=== PATIENT | female | born 1940 | race Caucasian/White ===

== ENCOUNTER 2024-11-17 19:54 | Observation (INO) | payer OTHER ==
[2024-11-17 22:02] LABS: BASO % 1.4 % (0-2.0); EOS % 2.6 % (0-4.5); HEMATOCRIT 21.9 % (32.4-45.2); HEMOGLOBIN 7.1 GM/dL (10.7-15.3); LYMPH % 31.2 % (8-40); MCH 28.8 pg (25.7-33.7); MCHC 32.4 g/dl (32.0-36.0); MEAN CELL VOLUME 88.8 fl (80-96); MEAN PLT VOLUME 7.4 fl (7.5-11.1); MONO % 7.4 % (3.8-10.2); NEUT % 57.4 % (42.8-82.8); PLATELET COUNT 235 10^3/uL (134-434); RBC 2.47 M/mm3 (3.60-5.2); RDW 14.6 % (11.6-15.6); WHITE BLOOD COUNT 5.6 K/mm3 (4.0-10.0)
[2024-11-17 22:08] LABS: INR 1.11 (0.83-1.09); PROTHROMBIN TIME (PATIENT) 12.2 SEC (9.7-13.0)
[2024-11-17 22:10] LABS: ACTIVATED PTT 28.8 SECONDS (25.2-36.5)
[2024-11-17 22:15] LABS: POTASSIUM 3.9 mmol/L (3.5-5.1)
[2024-11-17 22:17] LABS: CALCIUM 8.6 mg/dL (8.5-10.1)
[2024-11-17 22:18] LABS: ALBUMIN 3.3 g/dl (3.4-5.0); BLOOD UREA NITROGEN 29.8 mg/dL (7-18)
[2024-11-17 22:21] LABS: CREATININE 0.8 mg/dL (0.55-1.3)
[2024-11-17 22:23] LABS: BILIRUBIN,TOTAL 0.2 mg/dL (0.2-1); TOT PROT 6.6 g/dl (6.4-8.2)
[2024-11-17] MEDS ORDERED: ACETAMINOPHEN 325 MG TABLET (FP) ONE (22:56)
[2024-11-17] MEDS: ACETAMINOPHEN 325 MG TABLET (FP) PO ONE (23:06)
[2024-11-18] MEDS ORDERED: ACETAMINOPHEN 325 MG TABLET (FP) PO PRN (00:36)
[2024-11-18] MEDS ORDERED: QUEtiapine FUMARATE 25 MG TABLET ONE ×2 (01:11→02:05)
[2024-11-18] MEDS: QUEtiapine FUMARATE 25 MG TABLET PO SCH (01:17)
[2024-11-18] MEDS: amLODIPine BESYLATE 5 MG TABLET (FP) PO SCH ×2 (01:17→10:30)
[2024-11-18 02:02] LABS: EPI CELLS 6 /uL (0-25.1); HYALINE CASTS 0 /uL (0-3.1); URINE APPEARANCE CLEAR; URINE BACTERIA 17 /uL (0-1359); URINE BILIRUBIN NEGATIVE (NEGATIVE); URINE COLOR YELLOW; URINE GLUCOSE (UA) NEGATIVE (NEGATIVE); URINE KETONE NEGATIVE (NEGATIVE); URINE LEUK ESTERASE NEGATIVE (NEGATIVE); URINE NITRITE NEGATIVE (NEGATIVE); URINE PROTEIN NEGATIVE (NEGATIVE); URINE RBC 33 /uL (0-23.9); URINE UROBILINOGEN 0.2 mg/dL (0.2-1.0); URINE WBC 6 /uL (0-25.8)
[2024-11-18] MEDS: QUEtiapine FUMARATE 50 MG TABLET PO ONE (02:13)
[2024-11-18] MEDS: DIVALPROEX SODIUM 250 MG TABLET E.C. PO SCH (06:07)
[2024-11-18] MEDS: ALBUTEROL SO4 0.083% IH SOL 2.5 MG/3 ML VIAL.NEB. NEB SCH (07:20)
[2024-11-18 08:12] VITALS: RESP 16; BMI 28.3
[2024-11-18 10:01] VITALS: BP 125/57; PULSE 71; TEMP 97.5
[2024-11-18 10:09] LABS: HEMATOCRIT 24.9 % (32.4-45.2); HEMOGLOBIN 8.3 GM/dL (10.7-15.3); MCH 29.2 pg (25.7-33.7); MCHC 33.3 g/dl (32.0-36.0); MEAN CELL VOLUME 87.6 fl (80-96); MEAN PLT VOLUME 7.3 fl (7.5-11.1); PLATELET COUNT 199 10^3/uL (134-434); RBC 2.84 M/mm3 (3.60-5.2); RDW 14.7 % (11.6-15.6); WHITE BLOOD COUNT 4.5 K/mm3 (4.0-10.0)
[2024-11-18] MEDS: FLUTICASONE/UMECLIDIN/VILANTER(100-62.5-25 TRELEGY ELLIPTA) INAHLER IH SCH (10:27)
[2024-11-18] MEDS: PANTOPRAZOLE 40 MG TABLET PO SCH (10:27)
[2024-11-18] MEDS: HYDROCHLOROTHIAZIDE 25 MG TABLET (FP) PO SCH (10:27)
[2024-11-18] MEDS: ESCITALOPRAM OXALATE 10 MG TABLET PO SCH (10:28)
[2024-11-18] MEDS: LOSARTAN POTASSIUM 50 MG TABLET PO SCH (10:30)
[2024-11-18] MEDS: IRON SUCROSE INJECTION 200 MG in SODIUM CHLORIDE 100 ML IVPB ONE (10:33)
[2024-11-18] MEDS ORDERED: QUEtiapine FUMARATE 25 MG TABLET PO SCH (22:00)
== END 2024-11-18 17:26 | disposition home or self-care (01) ==
LOC: JER 19:54 → JERBED 22:47 → UNDOADMOB 22:47 → INTOOBSV 11-18 00:34 → OBSVTOIN 11-18 00:34 → JERBED 11-18 02:18 → J6S 11-18 05:24
PROVIDERS: ADMIT Student in an Organized Health Care Education/Training Program; ATTEND Internal Medicine
PROC: 30233N1 Transfusion of Nonautologous Red Blood Cells into Peripheral Vein, Percutaneous Approach (ICD-10-PCS; principal; 2024-11-18)
PROC: 3E033GC Introduction of Other Therapeutic Substance into Peripheral Vein, Percutaneous Approach (ICD-10-PCS; 2024-11-18)
PROC: 3E0F7SF Introduction of Other Gas into Respiratory Tract, Via Natural or Artificial Opening (ICD-10-PCS; 2024-11-18)
DX: D62 Acute posthemorrhagic anemia (principal); R04.0 Epistaxis; I10 Essential (primary) hypertension; E78.5 Hyperlipidemia, unspecified; I25.10 Atherosclerotic heart disease of native coronary artery without angina pectoris; F20.9 Schizophrenia, unspecified; F40.9 Phobic anxiety disorder, unspecified; F32.A Depression, unspecified; R26.2 Difficulty in walking, not elsewhere classified; Z99.89 Dependence on other enabling machines and devices; Z95.4 Presence of other heart-valve replacement; Z98.61 Coronary angioplasty status
CPT/HCPCS: 0241U-QW; 36415; 36430; 36511; 70450-TC; 71045-TC-FY; 80053; 80061; 81003; 82728; 83540; 83550; 83735; 84439; 84443; 84484; 85025; 85027; 85610; 85730; 86850; 86900; 86901; 86922; 87086; 87633; 93005; 93010; 94640; 96365; 97116-GP; 97162-GP; 99285-25; G0378; J1756; P9038; P9058